=== PATIENT | female | born 1990 | race Caucasian/White ===

== ENCOUNTER 2018-08-18 07:11 | Emergency (ER) | payer OTHER ==
[~2018-08-18] VITALS: Ht 162.6 cm; Wt 8.2 kg
[2018-08-18] MEDS ORDERED: TRAZ-214 PO (07:55)
[2018-08-18] MEDS ORDERED: ONDANSETRON 4 MG/2 ML VIAL IV ONE (08:00)
[2018-08-18] MEDS ORDERED: IV NORMAL SALINE 1000 ML BAG IV ONE (08:00)
[2018-08-18] MEDS ORDERED: PANTOPRAZOLE SODIUM 40 MG VIAL IV ONE (08:00)
--- NOTE | 2018-08-18 08:00 | NUR ---
RECEIVED A 28 Y/O FEMALE PT C/O ABD PAIN, N&V. V/S TAKEN, SEEN BY MD, IV LINE INSERTED G20 ON RT FOREARM, LABS TAKEN.
[2018-08-18 08:08] LABS: BASOPHILS % (AUTO) 0.4 % (0.0-2.0); EOSINOPHILS # (AUTO) 0.1 K/uL (0.0-0.7); EOSINOPHILS % (AUTO) 1.1 % (0.0-7.0); HEMATOCRIT 42.2 % (31.2-41.9); LYMPHOCYTES # (AUTO) 2.2 K/uL (20.0-40.0); LYMPHOCYTES % (AUTO) 30.4 % (20.5-51.5); MEAN CORPUSCULAR HEMOGLOBIN 24.9 uug (24.7-32.8); MEAN CORPUSCULAR HGB CONC 33 g/dL (32.3-35.6); MEAN CORPUSCULAR VOLUME 74.9 fL (75.5-95.3); MONOCYTES # (AUTO) 0.4 K/uL (2.0-10.0); MONOCYTES % (AUTO) 6.1 % (0.0-11.0); NEUTROPHILS # (AUTO) 4.4 K/uL (1.8-8.9); PLATELET COUNT (AUTO) 292 K/uL (179-408); RED BLOOD CELL COUNT(AUTO) 5.63 MIL/uL (3.63-4.92); WHITE BLOOD COUNT (AUTO) 7.1 K/uL (3.8-11.8)
[2018-08-18] MEDS ORDERED: PANTOPRAZOLE SODIUM 40 MG VIAL ONE (08:09)
[2018-08-18] MEDS ORDERED: ONDANSETRON 4 MG/2 ML VIAL ONE (08:09)
[2018-08-18 08:15] LABS: CARBON DIOXIDE 28 mmol/L (21-32); CHLORIDE 103 mmol/L (98-107); CREATININE 1.1 mg/dL (0.6-1.3); GLUCOSE 98 mg/dL (74-106); POTASSIUM 4.2 mmol/L (3.5-5.1); UREA NITROGEN, BLOOD 11 mg/dL (7-18)
[2018-08-18 08:20] LABS: ALANINE AMINOTRANSFERASE 21 U/L (14-59); ALKALINE PHOSPHATASE 67 U/L (50-136); ASPARTATE AMINOTRANSFERASE 15 U/L (15-37); BILIRUBIN,DIRECT 0.1 mg/dL (0.0-0.2); BILIRUBIN,TOTAL 0.2 mg/dL (0.2-1.0); LIPASE 186 U/L (73-393); TOTAL PROTEIN, SERUM 7.8 g/dL (6.4-8.2)
[2018-08-18] MEDS ORDERED: KETOROLAC TROMETHAMINE 30 MG INJ IVP ONE (08:45)
[2018-08-18] MEDS ORDERED: KETOROLAC TROMETHAMINE 30 MG INJ ONE (08:45)
--- NOTE | 2018-08-18 09:25 | NUR ---
PT DISCHARGED TO HOME, IV REMOVED, DISCHARGE INSTRUCTIONS AND PRESCRIPTION GIVEN. VERBALIZED UNDERSTANDING.
[2018-08-18 09:34] LABS: *BILIRUBIN,URIN NEGATIVE (NEGATIVE); *BLOOD, URINE 1+ (NEGATIVE); *CLARITY,URINE CLEAR (CLEAR); *COLOR,URINE YELLOW (YELLOW); *KETONES,URINE NEGATIVE (NEGATIVE); *UROBILINOGEN,URINE 0.2 E.U./dl (NORMAL); LEUKOCYTE ESTERASE ,URINE TRACE (NEGATIVE); NITRITE, URINE NEGATIVE (NEGATIVE); PH,URINE 5.5 (5.0-8.0); UGLUCOSE NEGATIVE (NEGATIVE)
[2018-08-18 09:39] LABS: BACTERIA,URINE FEW /HPF (NONE SEEN); RBC,URINE 0-3 /HPF (0-3); SQUAMOUS EPITHELIAL CELL,UR FEW /HPF (NONE SEEN); WBC,URINE 0-3 /HPF (0-3)
== END 2018-08-18 09:28 | disposition home or self-care (01) ==
LOC: ER 07:11
DX: G89.29 Other chronic pain (principal); R10.84 Generalized abdominal pain; K62.89 Other specified diseases of anus and rectum; R11.2 Nausea with vomiting, unspecified; Z76.0 Encounter for issue of repeat prescription; Z79.899 Other long term (current) drug therapy
CPT/HCPCS: 36415; 80048; 80076; 81001; 83690; 84443; 84702; 85025; 96361; 96374; 96375; 99283; C9113; J1885; J2405; A4663; J7030